=== PATIENT | male | born 1995 | race American Indian/Alaskan Native ===

== ENCOUNTER 2017-07-01 01:21 | Emergency (ER) | payer OTHER ==
[2017-07-01 02:40] VITALS: BP 115/71
[2017-07-01] MEDS ORDERED: TYLENOL ONE (02:51)
[2017-07-01] MEDS ORDERED: TYLENOL PO ONE (02:52)
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
[2017-07-01] MEDS ORDERED: NORCO 5/325 PO ONE (07:53)
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
== END 2017-07-01 09:14 | disposition home or self-care (01) ==
LOC: ED 01:21
DX: S16.1XXA Strain of muscle, fascia and tendon at neck level, initial encounter (principal); S39.012A Strain of muscle, fascia and tendon of lower back, initial encounter; M47.816 Spondylosis without myelopathy or radiculopathy, lumbar region; M54.6 Pain in thoracic spine; F17.200 Nicotine dependence, unspecified, uncomplicated; F12.10 Cannabis abuse, uncomplicated; R51 Headache; V87.7XXA Person injured in collision between other specified motor vehicles (traffic), initial encounter; W22.10XA Striking against or struck by unspecified automobile airbag, initial encounter; Y93.89 Activity, other specified; Y99.8 Other external cause status; Y92.410 Unspecified street and highway as the place of occurrence of the external cause
CPT/HCPCS: 70450; 72125; 72128; 72131; 99283

== ENCOUNTER 2019-08-16 20:08 | Emergency (ER) | payer OTHER ==
[2019-08-17] MEDS ORDERED: IBUPROFEN 600 MG TAB PO ONE (02:18)
[2019-08-17] MEDS ORDERED: ACETAMINOPHEN 500 MG TAB PO ONE (02:18)
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
[2019-08-17 04:50] VITALS: BP 101/59
== END 2019-08-17 04:48 | disposition home or self-care (01) ==
LOC: ED 20:08
DX: S16.1XXA Strain of muscle, fascia and tendon at neck level, initial encounter (principal); M62.830 Muscle spasm of back; M62.838 Other muscle spasm; F12.90 Cannabis use, unspecified, uncomplicated; F17.200 Nicotine dependence, unspecified, uncomplicated; Z79.899 Other long term (current) drug therapy; V49.59XA Passenger injured in collision with other motor vehicles in traffic accident, initial encounter; Y93.89 Activity, other specified; Y99.8 Other external cause status; Y92.410 Unspecified street and highway as the place of occurrence of the external cause
CPT/HCPCS: 72040; 72100; 99283